=== PATIENT | male | born 1950 | race American Indian/Alaskan Native ===

== ENCOUNTER 2016-09-01 16:44 | Emergency (ER) | payer MEDICARE ==
--- NOTE | 2016-09-01 20:26 | Emergency Department Report ---
ED General Adult HPI - General Chief complaint: Fall Stated complaint: CUT TOP OF HEAD/RT SHOULDER PAIN Time Seen by Provider: 09/01/16 20:14 Source: patient Mode of arrival: Ambulatory Limitations: No Limitations - History of Present Illness Initial comments: Patient comes into the ER today with complaints of a headache as well as right shoulder pain after falling and hitting a pole yesterday while playing tennis. Patient denies any loss of consciousness but does state that he was dazed right afterwards. Patient comes in today because he's been hurting all over low bit more than he was yesterday and he is concerned because he has some blood on the scalp. Patient is unsure as to when his last tetanus shot was. Patient denies any visual changes, nosebleed, mouth bleeding. -: days(s) (1) - Related Data Previous Rx's Medication Instructions Recorded Last Taken Type ALBUTEROL Inhaler [ProAir HFA 2 puff IH QID PRN #1 inhalation 02/14/16 Unknown Rx Inhaler] Albuterol Sulfate [Albuterol 0.63% 0.63 mg IH TID PRN #1 box 02/14/16 Unknown Rx NEBS] predniSONE [Deltasone] 50 mg PO QDAY #5 tab 02/14/16 Unknown Rx Cephalexin [Keflex] 500 mg PO TID #30 capsule 09/01/16 Unknown Rx Cyclobenzaprine HCl [Flexeril 5 MG 5 mg PO TID #15 tab 09/01/16 Unknown Rx TAB] Naproxen [Naprosyn TAB] 500 mg PO BID #14 tablet 09/01/16 Unknown Rx traMADol [Ultram] 50 mg PO Q4HR PRN #20 tablet 09/01/16 Unknown Rx Allergies Allergy/AdvReac Type Severity Reaction Status Date / Time No Known Allergies Allergy Verified 02/14/16 12:56 ED Review of Systems ROS: Stated complaint: CUT TOP OF HEAD/RT SHOULDER PAIN Other details as noted in HPI Constitutional: denies: chills, fever Eyes: denies: eye pain, eye discharge, vision change ENT: denies: ear pain, throat pain Respiratory: denies: cough, shortness of breath, wheezing Cardiovascular: denies: chest pain, palpitations Endocrine: no symptoms reported Gastrointestinal: denies: abdominal pain, nausea, diarrhea Genitourinary: denies: urgency, dysuria Musculoskeletal: arthralgia, myalgia. denies: back pain, joint swelling Skin: denies: rash, lesions Neurological: headache. denies: weakness, numbness, paresthesias, confusion, vertigo Psychiatric: denies: anxiety, depression Hematological/Lymphatic: denies: easy bleeding, easy bruising ED Past Medical Hx - Past Medical History Previous Medical History?: Yes Hx Asthma: Yes - Surgical History Past Surgical History?: Yes Hx Appendectomy: Yes - Social History Smoking Status: Current Every Day Smoker Substance Use Type: Alcohol, Prescribed - Medications Home Medications: Home Medications Medication Instructions Recorded Confirmed Last Taken Type ALBUTEROL Inhaler [ProAir HFA 2 puff IH QID PRN #1 inhalation 02/14/16 Unknown Rx Inhaler] Albuterol Sulfate [Albuterol 0.63% 0.63 mg IH TID PRN #1 box 02/14/16 Unknown Rx NEBS] predniSONE [Deltasone] 50 mg PO QDAY #5 tab 02/14/16 Unknown Rx Cephalexin [Keflex] 500 mg PO TID #30 capsule 09/01/16 Unknown Rx Cyclobenzaprine HCl [Flexeril 5 MG 5 mg PO TID #15 tab 09/01/16 Unknown Rx TAB] Naproxen [Naprosyn TAB] 500 mg PO BID #14 tablet 09/01/16 Unknown Rx traMADol [Ultram] 50 mg PO Q4HR PRN #20 tablet 09/01/16 Unknown Rx ED Physical Exam - General Limitations: No Limitations General appearance: alert, in no apparent distress - Head Head exam: Present: normocephalic, other (left superior and posterior parietal hematoma with superficial linear laceration noted anterior to hematoma. Laceration is approximately 2 cm in length and not no active bleeding noted.) - Eye Eye exam: Present: normal appearance, PERRL, EOMI. Absent: periorbital swelling , periorbital tenderness Pupils: Present: normal accommodation - ENT ENT exam: Present: normal exam, mucous membranes moist, TM's normal bilaterally , normal external ear exam - Neck Neck exam: Present: normal inspection, full ROM. Absent: tenderness, lymphadenopathy - Respiratory Respiratory exam: Present: normal lung sounds bilaterally. Absent: respiratory distress - Cardiovascular Cardiovascular Exam: Present: regular rate, normal rhythm. Absent: systolic murmur, diastolic murmur, rubs, gallop - GI/Abdominal GI/Abdominal exam: Present: soft, normal bowel sounds. Absent: distended, tenderness - Rectal Rectal exam: Present: deferred - Extremities Exam Extremities exam: Present: normal inspection, tenderness (right posterior shoulder tenderness), normal capillary refill. Absent: full ROM (limited abduction of right shoulder secondary to pain), pedal edema, calf tenderness - Back Exam Back exam: Present: normal inspection, full ROM. Absent: tenderness, muscle spasm, paraspinal tenderness, vertebral tenderness - Neurological Exam Neurological exam: Present: alert, oriented X3, CN II-XII intact, normal gait, reflexes normal. Absent: motor sensory deficit - Psychiatric Psychiatric exam: Present: normal affect, normal mood - Skin Skin exam: Present: warm, dry, intact, normal color. Absent: rash ED Course Vital Signs 09/01/16 17:18 Temperature 97.6 F Pulse Rate 68 Respiratory 20 Rate Blood Pressure 124/85 O2 Sat by Pulse 98 Oximetry ED Medical Decision Making - Radiology Data Radiology results: report reviewed CT of head without contrast reveals mild cerebral atrophy and chronic ischemic changes. No acute intracranial pathology noted. 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 - Medical Decision Making Patient is nontoxic and hemodynamically stable. I informed patient that if he was here yesterday we may have actually stitched up his wound. The due to the length of time from injury, no wound closure performed in the ER today. Due to have an open wound and left open, I will start patient on some antibiotics appropriately. I will also prescribe some medications for symptomatic relief of his aches and pains. Patient does state that he is already scheduled to see an orthopedic for his shoulder next month and I have encouraged him to keep that appointment. Patient is in agreement. Plan a patient stable for discharge. Critical care attestation.: If time is entered above; I have spent that time in minutes in the direct care of this critically ill patient, excluding procedure time. ED Disposition Clinical Impression: Head contusion, Laceration of head, Shoulder contusion Disposition: - TO HOME OR SELFCARE Is pt being admited?: No Does the pt Need Aspirin: No Condition: Good Instructions: Laceration (ED), Minor Head Injury (ED), Contusion in Adults (ED) Prescriptions: Cephalexin [Keflex] 500 mg PO TID #30 capsule Cyclobenzaprine HCl [Flexeril 5 MG TAB] 5 mg PO TID #15 tab Naproxen [Naprosyn TAB] 500 mg PO BID #14 tablet traMADol [Ultram] 50 mg PO Q4HR PRN #20 tablet PRN Reason: Pain Referrals: PRIMARY CARE,MD [Primary Care Provider] - 3-5 Days orthopedic, your [Other] - 3-5 Days Time of Disposition: 22:38
--- NOTE | 2016-09-01 20:57 | Cat Scan Report ---
FINAL REPORT PROCEDURE: CT head without contrast. TECHNIQUE: Computerized tomography of the head was performed without contrast material. HISTORY: Head injury. COMPARISON: No prior studies are available for comparison. FINDINGS: There is mild cerebral atrophy. There is mild evidence of chronic ischemic white matter disease. 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 There are no mass lesions. There is no intracranial hemorrhage. The calvarium appears intact. The mastoid air cells are clear. There is a small amount of fluid in the right maxillary sinus. There is mild mucosal thickening in the left maxillary sinus. There is mild mucosal thickening in both frontal sinuses. IMPRESSION: Mild cerebral atrophy and chronic ischemic changes as described. Mild sinusitis.
--- NOTE | 2016-09-01 22:05 | XRay Report ---
FINAL REPORT PROCEDURE: Right shoulder. TECHNIQUE: Three views. HISTORY: Shoulder injury. COMPARISON: No prior studies are available for comparison. FINDINGS: The bones appear intact without fracture or dislocation. The joint spaces appear normal. The soft tissues are unremarkable. IMPRESSION: Normal study.
[2016-09-01 22:54] VITALS: BP 130/87
== END 2016-09-01 22:51 | disposition home or self-care (01) ==
LOC: ED 16:44
DX: S01.91XA Laceration without foreign body of unspecified part of head, initial encounter (principal); S40.011A Contusion of right shoulder, initial encounter; J45.909 Unspecified asthma, uncomplicated; F17.200 Nicotine dependence, unspecified, uncomplicated; W22.8XXA Striking against or struck by other objects, initial encounter; Y93.73 Activity, racquet and hand sports; Y99.8 Other external cause status; Y92.89 Other specified places as the place of occurrence of the external cause
CPT/HCPCS: 70450